=== PATIENT | female | born 2000 | race Two or more races ===

== ENCOUNTER 2022-09-27 13:38 | Outpatient (REF) | payer OTHER, SELFPAY ==
[2022-09-27 14:34] LABS: COVID-19 Test Negative (Negative); IDNOW Serial# BCCEAD1C
== END 2022-09-27 13:39 | disposition home or self-care (01) ==
LOC: HO.LAB 13:38
PROVIDERS: Visit Provider Internal Medicine
DX: Z20.822 Contact with and (suspected) exposure to COVID-19 (principal)
CPT/HCPCS: 87635; C9803